=== PATIENT | female | born 1995 | race Two or more races ===

== ENCOUNTER 2023-03-24 10:02 | Inpatient (IN) | payer MEDICAID, OTHER ==
[2023-03-23 11:14] LABS: Hemoglobin 10.6 g/dL (12.0-15.5); Platelet Count 223 10x3/uL (150-450)
[2023-03-23 11:44] LABS: HBSAg Index 0.17 S/CO (0-0.99); Hep B Surf Ag Non-Reactive S/CO (NonReactive); Syphilis Antibody Nonreactive (Nonreactive); Syphilis Antibody Index 0.07 S/CO (<1.00 Non-Reactive)
[2023-03-24 10:31] VITALS: BMI 34.0
[2023-03-24] MEDS ORDERED: Diphenoxylate HCl/Atropine Tablet PO PRN (10:31)
[2023-03-24] MEDS ORDERED: Famotidine/PF 20 mg/2ml Vial SLOW IVP PRN (10:31)
[2023-03-24] MEDS ORDERED: Methylergonovine 0.2 MG/ML VIAL IM PRN (10:31)
[2023-03-24] MEDS ORDERED: Carboprost 250 MCG/ML AMP IM PRN (10:31)
[2023-03-24] MEDS ORDERED: Bicitra 30 ML UDCUP PO PRN (10:31)
[2023-03-24] MEDS ORDERED: CEFAZOLIN 2 GM in Sodium Chloride 0.9% 100 ML IVPB SCH (10:31)
[2023-03-24] MEDS ORDERED: Tranexamic Acid 1,000 MG/10 ML VIAL IVP PRN (10:31)
[2023-03-24] MEDS ORDERED: Misoprostol 200 MCG TAB PR PRN (10:31)
[2023-03-24] MEDS ORDERED: Promethazine HCl 25 MG/ML VIAL IM PRN ×3 (10:31→15:39)
[2023-03-24] MEDS ORDERED: Ondansetron PF 4 MG/2 ML Vial IVP PRN ×3 (10:31→15:39)
[2023-03-24] MEDS ORDERED: hydrALAZINE 20 MG/ML VIAL SLOW IVP PRN ×2 (10:31→15:39)
[2023-03-24] MEDS ORDERED: NS w/ Oxytocin 30 units 500 ML IV SCH (10:31)
[2023-03-24] MEDS: Lactated Ringer's 1,000 ML IV SCH ×2 (10:40→11:57)
[2023-03-24] MEDS ORDERED: Morphine PF 10 MG/10 ML VIAL ONE (11:20)
[2023-03-24] MEDS ORDERED: Ketorolac Tromethamine 30 MG/ML VIAL ONE (11:20)
[2023-03-24] MEDS ORDERED: Phenylephrine 40 MG/NS 250 ML 250 ML ONE (11:20)
[2023-03-24] MEDS ORDERED: Ondansetron PF 4 MG/2 ML Vial ONE (11:20)
[2023-03-24] MEDS ORDERED: Oxytocin 10 UNITS/ML VIAL ONE (11:20)
[2023-03-24] MEDS ORDERED: ePHEDrine Sulfate 50 MG/10 ML VIAL ONE (11:20)
[2023-03-24] MEDS ORDERED: Succinylcholine 200 MG/10 ml SYRINGE FS ONE (11:21)
[2023-03-24] MEDS ORDERED: Moisturizing Cream (Eucerin) 113 GM JAR TOP PRN (11:38)
[2023-03-24] MEDS ORDERED: Promethazine HCl 25 MG SUPP PR PRN (11:38)
[2023-03-24] MEDS ORDERED: Meperidine HCl/PF 25 MG/ML VIAL SLOW IVP PRN (11:38)
[2023-03-24] MEDS ORDERED: Ondansetron HCl/PF 4 MG/2 ML Vial IVP PRN (11:38)
[2023-03-24] MEDS ORDERED: Naloxone HCl 0.4 mg/ml Vial IVP PRN ×2 (11:38)
[2023-03-24] MEDS ORDERED: Fentanyl 100 MCG/2 ML VIAL SLOW IVP PRN (11:38)
[2023-03-24] MEDS ORDERED: diphenhydrAMINE 50 MG/ML VIAL IVP PRN (11:38)
[2023-03-24] MEDS ORDERED: Naloxone HCl 0.4 mg/ml Vial IV PRN (11:38)
[2023-03-24] MEDS ORDERED: Communication Order-Pharmacy FS SCH (11:45)
[2023-03-24] MEDS ORDERED: Sterile Water 10 ML ONE (13:30)
[2023-03-24] MEDS ORDERED: Promethazine HCl 25 MG/ML VIAL ONE (13:30)
[2023-03-24] MEDS ORDERED: PHENYLEPHRINE-NS 100 MCG/ML 10 ML SYRINGE ONE (13:32)
[2023-03-24] MEDS ORDERED: Boostrix 0.5 ML (Tdap) VIAL (>/=7 yrs of age) IM ONE (15:39)
[2023-03-24] MEDS ORDERED: Bisacodyl 10 MG SUPP PR PRN (15:39)
[2023-03-24] MEDS ORDERED: fentaNYL 50 mcg/mL 1 mL Vial SLOW IVP SCH (16:30)
[2023-03-24] MEDS ORDERED: Ketorolac Tromethamine 30 MG/ML VIAL IVP SCH (19:00)
[2023-03-24] MEDS ORDERED: Ketorolac Tromethamine 30 MG/ML VIAL IVP PRN (19:00)
[2023-03-24] MEDS: Ketorolac Tromethamine 30 MG/ML VIAL IVP SCH (20:04)
[2023-03-24] MEDS: diphenhydrAMINE 25 MG CAP PO PRN (21:10)
[2023-03-24] MEDS: Ferrous Sulfate 325 MG TAB PO SCH (21:10)
[2023-03-24] MEDS: Simethicone Chewable 80 MG TAB PO PRN (21:10)
[2023-03-24] MEDS: Docusate 100 MG CAP PO SCH (21:10)
[2023-03-25] MEDS: Ketorolac Tromethamine 30 MG/ML VIAL IVP SCH ×2 (02:10→08:11)
[2023-03-25 04:04] LABS: Hemoglobin 8.5 g/dL (12.0-15.5); Mean Corpuscular Hemoglobin 27.8 pg (27.0-33.0); Mean Corpuscular Volume 86.9 fl (81.6-98.3); Mean Platelet Volume 11.9 fl (7.4-10.4); Platelet Count 182 10x3/uL (150-450); RBC Distribution Width 14.6 % (11.5-14.5); Red Blood Cell (RBC) Count 3.06 10x6/uL (3.90-5.03); White Blood Cell (WBC) Count 7.5 10x3/uL (3.5-10.5)
[2023-03-25] MEDS: diphenhydrAMINE 25 MG CAP PO PRN (04:04)
[2023-03-25] MEDS: HYDROcodone/Acetaminophen 5/325 mg Tablet PO PRN ×4 (08:11→21:43)
[2023-03-25] MEDS: Prenatal Vitamin 1 TAB PO SCH (08:11)
[2023-03-25] MEDS: Ferrous Sulfate 325 MG TAB PO SCH ×2 (08:11→21:43)
[2023-03-25] MEDS: Docusate 100 MG CAP PO SCH ×2 (08:11→21:43)
[2023-03-25] MEDS: Ibuprofen 800 MG TAB PO SCH ×2 (13:55→22:15)
[2023-03-25] MEDS: Simethicone Chewable 80 MG TAB PO PRN (15:12)
[2023-03-26] MEDS: HYDROcodone/Acetaminophen 5/325 mg Tablet PO PRN ×5 (02:21→23:04)
[2023-03-26] MEDS: Ibuprofen 800 MG TAB PO SCH ×3 (05:47→21:24)
[2023-03-26] MEDS: Ferrous Sulfate 325 MG TAB PO SCH ×2 (07:50→21:24)
[2023-03-26] MEDS: Docusate 100 MG CAP PO SCH ×2 (07:50→21:24)
[2023-03-26] MEDS: Prenatal Vitamin 1 TAB PO SCH (07:50)
[2023-03-26] MEDS: Simethicone Chewable 80 MG TAB PO PRN (21:24)
[2023-03-27] MEDS: Ibuprofen 800 MG TAB PO SCH (06:13)
[2023-03-27] MEDS: diphenhydrAMINE 25 MG CAP PO PRN (06:13)
[2023-03-27] MEDS: Docusate 100 MG CAP PO SCH (08:27)
[2023-03-27] MEDS: Ferrous Sulfate 325 MG TAB PO SCH (08:27)
[2023-03-27] MEDS: HYDROcodone/Acetaminophen 5/325 mg Tablet PO PRN (08:34)
[2023-03-27] MEDS: Prenatal Vitamin 1 TAB PO SCH (08:34)
[2023-03-27 09:59] VITALS: BP 110/75; TEMP 97.7
== END 2023-03-27 10:55 | disposition home or self-care (01) | DRG 788 ==
LOC: CSHLD 10:02 → CSHPP 15:59
PROVIDERS: ADMIT Family Medicine; ATTEND Family Medicine
PROC: 10D00Z1 Extraction of Products of Conception, Low, Open Approach (ICD-10-PCS; principal; 2023-03-24)
DX: O34.211 Maternal care for low transverse scar from previous cesarean delivery (principal); Z3A.39 39 weeks gestation of pregnancy; Z37.0 Single live birth; Z79.899 Other long term (current) drug therapy; Z90.49 Acquired absence of other specified parts of digestive tract
CPT/HCPCS: 36415; 51702; 85014; 85018; 85027; 85049; 86780; 86850; 86900; 86901; 87340; J1200; J1885; J2274; J2405; J2550; J2590; J3010; J3490; J7120; S0028